=== PATIENT | female | born 1950 | race Caucasian/White ===

== ENCOUNTER 2016-11-25 05:56 | Observation (INO) | payer OTHER ==
[~2016-11-25] VITALS: Ht 172.7 cm; Wt 61.7 kg
[~2016-11-25 05:56] MED LIST: ALEN70TA48 PO; ASPI81 PO; ATOR40TA28 PO; CeFAZolin 1 GM/DEXTROSE 50 ML IV ONE; DEXAMETHASONE SOD PHOS 4 MG/ML VIAL IVP ONE; FentaNYL CITRATE-PF 100 MCG/2 ML VIAL IVP ONE; KETAMINE HCL 50 MG/ML 10 ML VIAL IVP ONE; KETOROLAC TROMETHAMINE 60 MG/2 ML VIAL IM ONE; LOSA50TA37 PO; MIDAZOLAM HCL 2 MG/2 ML VIAL IVP ONE; OMEP20 PO; ONDANSETRON HCL 4 MG/2 ML VIAL IVP ONE; PERCT10 PO; PROPOFOL 1% 20 ML VIAL IVP ONE; SODIUM CHLORIDE 0.9% 1,000 ML IV ONE
[2016-11-25] MEDS ORDERED: SODIUM CHLORIDE 0.9% 1,000 ML IV ONE ×8 (06:30→17:15)
[2016-11-25 06:45] LABS: INR 1.1 (0.9-1.1); PROTHROMBIN TIME 11.5 SEC (9.4-11.6)
[2016-11-25 06:49] LABS: CREATININE 0.88 mg/dL (0.60-1.30); GLOMERULAR FILTR. RATE CALC > 60 mL/min (>60); UREA NITROGEN, BLOOD 13 mg/dL (7-18)
[2016-11-25] MEDS ORDERED: LORazepam 2 MG/ML VIAL ONE (07:01)
[2016-11-25 07:02] LABS: GLUCOSE,POINT OF CARE 111 MG/DL (70-110)
[2016-11-25] MEDS ORDERED: LORazepam 2 MG/ML VIAL IVP ONE (07:30)
[2016-11-25] MEDS ORDERED: IODIXANOL 320 MG/ML 100 ML VIAL ONE ×3 (07:33→09:10)
[2016-11-25] MEDS ORDERED: LIDOCAINE HCL/PF 1% 30 ML VIAL ONE ×2 (07:33→10:38)
[2016-11-25] MEDS ORDERED: SODIUM BICARBONATE 50 MEQ/50 ML VIAL ONE (07:33)
[2016-11-25] MEDS ORDERED: CeFAZolin 1 GM/DEXTROSE 50 ML IV ONE (08:00)
[2016-11-25 08:14] VITALS: BP 136/70
[2016-11-25] MEDS ORDERED: HEPARIN SODIUM 1000 UNITS/NS 500 ML ONE (08:18)
[2016-11-25] MEDS ORDERED: HEPARIN SODIUM 1000 UNITS/NS 500 ML IV ONE (08:45)
[2016-11-25] MEDS ORDERED: LIDOCAINE 1% 30 ML/SOD BICARB 8.4% 4 ML SQ ONE (08:45)
[2016-11-25] MEDS ORDERED: IODIXANOL 320 MG/ML 100 ML VIAL IARTER ONE ×2 (08:45)
[2016-11-25 10:05] VITALS: BP 137/64
[2016-11-25] MEDS ORDERED: IOVERSOL 350 MG/ML 100 ML VIAL ONE (10:51)
[2016-11-25] MEDS ORDERED: SODIUM CHLORIDE 0.9% 100 ML ONE (10:51)
[2016-11-25] MEDS ORDERED: SODIUM CHLORIDE 0.9% 700 ML IV ONE (12:33)
[2016-11-25] MEDS ORDERED: HYDROmorphone 2 MG/ML SYRINGE ONE (12:54)
[2016-11-25] MEDS ORDERED: LABETALOL HCL 5 MG/ML 20 ML VIAL IVP ONE ×2 (12:55→13:00)
[2016-11-25] MEDS ORDERED: HYDROmorphone 2 MG/ML SYRINGE IVP PRN (12:55)
[2016-11-25] MEDS ORDERED: ONDANSETRON HCL 4 MG/2 ML VIAL ONE ×2 (12:58→14:40)
[2016-11-25] MEDS ORDERED: PROMETHAZINE HCL 25 MG/ML VIAL IM ONE (13:05)
[2016-11-25] MEDS ORDERED: ONDANSETRON HCL 4 MG/2 ML VIAL IVP ONE (13:05)
[2016-11-25] MEDS ORDERED: ONDANSETRON HCL 4 MG/2 ML VIAL IVP PRN (13:30)
[2016-11-25] MEDS ORDERED: ACETYLCYSTEINE IV ONE (14:45)
[2016-11-25] MEDS ORDERED: DEXTROSE 5% IV ONE (14:45)
[2016-11-25] MEDS ORDERED: WATER IV ONE (14:45)
[2016-11-25] MEDS ORDERED: PROMETHAZINE HCL 25 MG/ML VIAL ONE (16:00)
[2016-11-25] MEDS ORDERED: HYDROmorphone HCL 2 MG TABLET PO PRN ×2 (18:15→21:00)
[2016-11-25] MEDS ORDERED: PROMETHAZINE HCL 25 MG TABLET PO ONE (18:15)
[2016-11-25] MEDS ORDERED: CIMETIDINE 400 MG TABLET PO ONE (18:15)
[2016-11-25 20:05] VITALS: BP 138/72
[2016-11-25] MEDS ORDERED: MAGNESIUM HYDROXIDE SUSPENSION 30 ML UDCUP PO PRN (21:00)
[2016-11-25] MEDS: SODIUM CHLORIDE 0.9% 1,000 ML IV SCH (21:20)
[2016-11-25] MEDS: HYDROmorphone 2 MG/ML SYRINGE IVP PRN (21:21)
[2016-11-25] MEDS: ONDANSETRON HCL 8 MG in DEXTROSE 5%-WATER 50 ML IV SCH (21:29)
[2016-11-25] MEDS: DOCUSATE SODIUM 100 MG CAPSULE PO SCH (22:10)
[2016-11-25 23:51] VITALS: BP 150/73
[2016-11-26] MEDS ORDERED: ONDANSETRON HCL 4 MG/2 ML VIAL IVP SCH
[2016-11-26] MEDS: SODIUM CHLORIDE 0.9% 1,000 ML IV SCH ×2 (04:24→10:03)
[2016-11-26 04:29] VITALS: BP 149/76
[2016-11-26] MEDS: HYDROmorphone 2 MG/ML SYRINGE IVP PRN (04:33)
[2016-11-26] MEDS: ONDANSETRON HCL 8 MG in DEXTROSE 5%-WATER 50 ML IV SCH (05:00)
[2016-11-26 06:01] LABS: BASOPHILS % (AUTO) 0.1 % (0.0-2.0); EOSINOPHILS % (AUTO) 0 % (1.0-6.0); HEMATOCRIT 31.2 % (36-46); HEMOGLOBIN 10.1 g/dL (12.0-16.0); LYMPHOCYTES # (AUTO) 1.2 K/uL (1.0-4.8); LYMPHOCYTES % (AUTO) 6.1 % (22.0-44.0); MEAN CORPUSCULAR HEMOGLOBIN 28.2 pg (26.0-34.0); MEAN CORPUSCULAR HGB CONC 32.3 G/dL (31.0-37.0); MEAN CORPUSCULAR VOLUME 87 fL (80-100); MONOCYTES # (AUTO) 1.5 K/uL (0.1-1.0); MONOCYTES % (AUTO) 7.8 % (2.0-9.0); NEUTROPHILS # (AUTO) 16.7 K/uL (1.8-7.7); PLATELET COUNT (AUTO) 280 K/uL (150-450); RED BLOOD CELL COUNT(AUTO) 3.58 MIL/uL (4.00-5.20); RED CELL DISTRIBUTION WIDTH 13.1 % (11.5-14.5); WHITE BLOOD COUNT (AUTO) 19.4 K/uL (4.5-11.0)
[2016-11-26 06:15] LABS: ALANINE AMINOTRANSFERASE 26 U/L (12-78); ALBUMIN 2.6 g/dL (3.4-5.0); ASPARTATE AMINOTRANSFERASE 23 U/L (15-37); BILIRUBIN,TOTAL 0.4 mg/dL (0.1-1.0); CALCIUM, TOTAL 8.1 mg/dL (8.8-10.5); CREATININE 0.61 mg/dL (0.60-1.30); GLOMERULAR FILTR. RATE CALC > 60 mL/min (>60); TOTAL PROTEIN, SERUM 5.7 g/dL (6.4-8.2); UREA NITROGEN, BLOOD 11 mg/dL (7-18)
[2016-11-26 07:16] LABS: ANION GAP 10 mmol/L (8-16); CARBON DIOXIDE 24 mmol/L (22-29); CHLORIDE 106 mmol/L (98-107); POTASSIUM 4.3 mmol/L (3.5-5.1); SODIUM SERUM 140 mmol/L (136-145)
[2016-11-26 07:59] VITALS: BP 159/81
[2016-11-26] MEDS ORDERED: CIPROFLOXACIN 400 MG/D5% WATER 200 ML IV ONE (08:00)
[2016-11-26] MEDS ORDERED: CeFAZolin 1 GM/DEXTROSE 50 ML IV ONE (08:00)
[2016-11-26] MEDS ORDERED: PANTOPRAZOLE SODIUM 40 MG/VIAL IVP SCH (09:00)
[2016-11-26] MEDS: DOCUSATE SODIUM 100 MG CAPSULE PO SCH (09:01)
[2016-11-26] MEDS ORDERED: HYDR2TAB35 PO (11:24)
[2016-11-26 11:40] VITALS: BP 149/78
[2016-11-26] MEDS ORDERED: ACETAMINOPHEN 325 MG TABLET PO ONE (11:45)
== END 2016-11-26 13:25 | disposition home or self-care (01) ==
LOC: SDS 05:56 → 5N 05:57 → UNDOADMOB 18:58 → INTOOBSV 18:58 → 5N 18:58 → UNDODISOB 11-26 13:25
PROVIDERS: ADMIT Internal Medicine; ATTEND Internal Medicine
DX: C25.7 Malignant neoplasm of other parts of pancreas (principal); C78.7 Secondary malignant neoplasm of liver and intrahepatic bile duct; Z87.891 Personal history of nicotine dependence; Z85.07 Personal history of malignant neoplasm of pancreas
CPT/HCPCS: 20983; 36415 ×2; 75774; 77012; 80053; 82565; 82962; 84520; 85025; 85049; 85610; 87081; 96365; 96375 ×2; 96376; C1760; C1769 ×2; C1887 ×3; C1892; C2618; C9113; G0378 ×2; J0132; J0690 ×2; J0744; J1100; J1170 ×2; J1644; J1885; J2060; J2250; J2405 ×2; J2550; J2704; J3010; J3490 ×4; J7030 ×2; J7050; J7060 ×2; Q9967 ×2